=== PATIENT | male | born 1960 | race Caucasian/White ===

== ENCOUNTER 2021-03-21 18:26 | Emergency (ER) | payer OTHER ==
[2021-03-21 18:30] VITALS: BP 126/74
[2021-03-21 19:01] VITALS: BP 126/74
[2021-03-21] MEDS ORDERED: CYCLOBENZAPRINE HCL 10 MG TABLET PO ONE (19:45)
[2021-03-21] MEDS ORDERED: FENTANYL CITRATE PF 50 MCG/1 ML 2ML VIAL IVP ONE (19:45)
[2021-03-21 19:50] VITALS: BP 160/82
[2021-03-21] MEDS ORDERED: DIAZ5TAB PO (21:04)
[2021-03-21] MEDS ORDERED: TRAM1TAB PO (21:04)
[2021-03-21 21:10] VITALS: BP 145/71
== END 2021-03-21 21:22 | disposition home or self-care (01) ==
LOC: EDH 18:26
DX: M54.40 Lumbago with sciatica, unspecified side (principal); M47.896 Other spondylosis, lumbar region; E78.00 Pure hypercholesterolemia, unspecified; Z98.890 Other specified postprocedural states; Z79.899 Other long term (current) drug therapy
CPT/HCPCS: 72131; 96374; 99284; J3010